=== PATIENT | female | born 1980 | race Caucasian/White ===

== ENCOUNTER 2020-08-17 18:56 | Inpatient (IN) ==
[2020-08-17 20:03] LABS: Basophils # 0.1 10*3/uL (0.0-0.2); Basophils % 0.5 % (0.0-0.8); Eosinophils # 0.1 10*3/uL (0.0-0.87); Eosinophils % 0.7 % (0.00-10.9); Hematocrit 45.9 VOL% (35.7-47.0); Hemoglobin 15.3 GM/DL (12.0-16.0); Immature Granulocytes % 0.5 %; Immature Granulocytes Absolute 0.05 #; Lymphocytes # 2.3 10*3/uL (1.4-4.0); Lymphocytes % 21.4 % (21.3-54.2); Mean Corpuscular HGB Conc 33.3 GM/DL (32-36); Mean Corpuscular Volume 96.6 FL (87-102); Mean Platelet Volume 8.6 FL (9.6-12.0); Monocytes % 7.4 % (1.7-12.7); Neutrophils % 69.5 % (38.7-73.9); Platelet Count 326 T/CUMM (130-400); Red Blood Count 4.75 MC/CUMM (3.8-5.5); Red Cell Distribution Width 13.9 % (9.3-17.3); White Blood Count 10.5 T/CUMM (4-12)
[2020-08-17] MEDS ORDERED: ONDANSETRON 4 MG/2 ML VIAL IV STA (20:10)
[2020-08-17] MEDS ORDERED: SODIUM CHLORIDE 0.9% 500 ML IV STA (20:10)
[2020-08-17] MEDS ORDERED: methylPREDNISolone SOD SUC 125 MG/2 ML VIAL IV STA (20:10)
[2020-08-17 20:19] LABS: Alanine Aminotransferase 120 U/L (13-56); Albumin 3.1 G/DL (3.4-5.0); Alkaline Phosphatase 124 U/L (45-117); Aspartate Amino Transferase 89 U/L (0-37); Bilirubin,Total < 0.39 MG/DL (0.2-1.0); Blood Urea Nitrogen 17 MG/DL (7-18); Calcium 8.5 MG/DL (8.5-10.1); Carbon Dioxide 28 MMOL/L (21-32); Estimated Glom Filtration Rate 65 ML/MIN; Glucose 120 MG/DL (74-106); Osmolality,Calculated 279.5 MOS/KG (273-304); Potassium 4.3 MMOL/L (3.5-5.1); Sodium 139 MMOL/L (136-145); Total Protein 6.5 G/DL (6.4-8.2)
[2020-08-17] MEDS ORDERED: PIPERACILLIN/TAZOBACTAM 3,375 MG in SODIUM CHLORIDE 0.9% 100 ML IV STA (20:22)
[2020-08-17] MEDS ORDERED: busPIRone 10 MG TABLET ONE ×2 (20:33→20:50)
[2020-08-17] MEDS: busPIRone 10 MG TABLET PO SCH (20:48)
[2020-08-17] MEDS ORDERED: FUROSEMIDE 40 MG/4 ML VIAL IV STA (20:48)
[2020-08-17] MEDS ORDERED: ENOXAPARIN 100 MG/ML SYRINGE SUBCUT STA (20:50)
[2020-08-17 21:41] LABS: Bilirubin,Urine Negative (Negative); Blood, Urine Large mg/dL (Negative); Glucose,Urine (UA) Negative (Negative); Ketones,Urine Negative (Negative); Mucus,Urine Occasional /LPF (Occasional); Nitrite,Urine Negative (Negative); Protein,Urine 30 MG/DL; RBC,Urine 181 /HPF (0-4); Squamous Epithelial Cell,Urine Many /HPF (0-10); Transitional Epi Cells,Urine Occasional /HPF (<1); Urine Appearance Slightly Hazy (Clear); Urine Color Yellow (Yellow); Urine Specific Gravity 1.009 (1.001-1.035); Urine Urobilinogen < 2.0 EU/DL (0.2-1.0); WBC,Urine 7 /HPF (0-6)
[2020-08-17 22:05] LABS: Barbiturates Screen,Urine Negative (Negative); Benzodiazepines Screen,Urine Negative (Negative); Cannabinoid Screen,Urine Negative (Negative); Opiate Screen,Urine Negative (Negative); Phencyclidine Screen,Urine Negative (Negative)
[2020-08-17 22:51] LABS: INR 1.1; PT Patient Result 12.4 SECS (9.8-11.9)
[2020-08-17] MEDS ORDERED: CLORAZEPATE 7.5 MG TABLET PO ONE (23:58)
[2020-08-18] MEDS ORDERED: ZALEPLON 5 MG CAPSULE PO ONE
[2020-08-18] MEDS ORDERED: CLORAZEPATE 7.5 MG TABLET PO ONE (00:30)
[2020-08-18] MEDS ORDERED: LEVALBUTEROL 1.25 MG/3 ML NEB RESP TX PRN (00:34)
[2020-08-18] MEDS ORDERED: GLUCAGON 1 MG VIAL IM PRN (00:41)
[2020-08-18] MEDS ORDERED: DEXTROSE 50% 25 GM/50 ML VIAL IV PRN (00:41)
[2020-08-18] MEDS ORDERED: ONDANSETRON 4 MG/2 ML VIAL IV PRN (00:41)
[2020-08-18] MEDS ORDERED: hydrALAZINE 20 MG/1 ML VIAL IV PRN (00:41)
[2020-08-18] MEDS ORDERED: cefTRIAXone 1,000 MG in SODIUM CHLORIDE 0.9% 100 ML IV SCH (01:00)
[2020-08-18] MEDS ORDERED: AZITHROMYCIN INJ 500 MG in SODIUM CHLORIDE 0.9% 250 ML IV SCH (01:00)
[2020-08-18] MEDS ORDERED: ENOXAPARIN 60 MG/0.6 ML SYRINGE SUBCUT SCH (01:00)
[2020-08-18 03:18] LABS: Basophils % 0.3 % (0.0-0.8); Hematocrit 47.5 VOL% (35.7-47.0); Hemoglobin 15.1 GM/DL (12.0-16.0); Immature Granulocytes % 0.4 %; Immature Granulocytes Absolute 0.03 #; Lymphocytes # 0.5 10*3/uL (1.4-4.0); Lymphocytes % 7.2 % (21.3-54.2); Mean Corpuscular HGB Conc 31.8 GM/DL (32-36); Mean Corpuscular Volume 99.2 FL (87-102); Mean Platelet Volume 8.6 FL (9.6-12.0); Monocytes % 1.5 % (1.7-12.7); Neutrophils % 90.6 % (38.7-73.9); Platelet Count 331 T/CUMM (130-400); Red Blood Count 4.79 MC/CUMM (3.8-5.5); Red Cell Distribution Width 13.8 % (9.3-17.3); White Blood Count 6.8 T/CUMM (4-12)
[2020-08-18 03:44] LABS: Alanine Aminotransferase 114 U/L (13-56); Albumin 3.1 G/DL (3.4-5.0); Alkaline Phosphatase 124 U/L (45-117); Aspartate Amino Transferase 74 U/L (0-37); Bilirubin,Total < 0.39 MG/DL (0.2-1.0); Blood Urea Nitrogen 17 MG/DL (7-18); Calcium 8.3 MG/DL (8.5-10.1); Carbon Dioxide 23 MMOL/L (21-32); Estimated Glom Filtration Rate 60 ML/MIN; Glucose 176 MG/DL (74-106); HDL Cholesterol 46 MG/DL (40-60); Potassium 3.9 MMOL/L (3.5-5.1); Sodium 136 MMOL/L (136-145); Total Protein 6.7 G/DL (6.4-8.2); Triglycerides 90 MG/DL (2-150)
[2020-08-18 04:03] LABS: Lymphocytes 5 % (20-55); Platelet Estimate Normal; Segmented Neutrophils 93 % (50-85); Total Cells Counted 100
[2020-08-18 04:14] LABS: Hepatitis B Core IgM Quant 0.17 Index; Hepatitis B Surface Ag Quant < 0.10 Index; Hepatitis B Surface Ag Result Non-Reactive (NonReactive); Hepatitis C Virus Ab Quant 0.11 Index; Hepatitis C Virus Ab Result Non-Reactive (NonReactive)
[2020-08-18] MEDS ORDERED: FUROSEMIDE 40 MG/4 ML VIAL IV SCH (08:00)
[2020-08-18] MEDS: ASCORBIC ACID 500 MG TABLET PO SCH (08:50)
[2020-08-18] MEDS: PANTOPRAZOLE 40 MG TABLET PO SCH (08:51)
[2020-08-18] MEDS: busPIRone 10 MG TABLET PO SCH (08:51)
[2020-08-18] MEDS: ENOXAPARIN 60 MG/0.6 ML SYRINGE SUBCUT SCH ×2 (08:52→20:50)
[2020-08-18] MEDS ORDERED: predniSONE 20 MG TABLET PO SCH (09:00)
[2020-08-18] MEDS ORDERED: FUROSEMIDE 20 MG/2 ML VIAL IV SCH (16:00)
[2020-08-18] MEDS: clonazePAM 0.5 MG TABLET PO SCH (20:50)
[2020-08-18] MEDS ORDERED: ZALEPLON 5 MG CAPSULE PO PRN (21:00)
[2020-08-18] MEDS ORDERED: NICOTINE 14 MG/24 HR PATCH TRANSDERM PRN (23:42)
[2020-08-19 05:22] LABS: Basophils # 0.1 10*3/uL (0.0-0.2); Basophils % 0.3 % (0.0-0.8); Eosinophils # 0.1 10*3/uL (0.0-0.87); Eosinophils % 0.4 % (0.00-10.9); Hematocrit 44.2 VOL% (35.7-47.0); Hemoglobin 14.9 GM/DL (12.0-16.0); Immature Granulocytes % 0.4 %; Immature Granulocytes Absolute 0.07 #; Lymphocytes # 3.6 10*3/uL (1.4-4.0); Lymphocytes % 22.8 % (21.3-54.2); Mean Corpuscular HGB Conc 33.7 GM/DL (32-36); Mean Corpuscular Volume 95.3 FL (87-102); Mean Platelet Volume 8.8 FL (9.6-12.0); Monocytes % 8.6 % (1.7-12.7); Neutrophils % 67.5 % (38.7-73.9); Platelet Count 334 T/CUMM (130-400); Red Blood Count 4.64 MC/CUMM (3.8-5.5); Red Cell Distribution Width 13.8 % (9.3-17.3); White Blood Count 15.9 T/CUMM (4-12)
[2020-08-19 05:56] LABS: Calcium 8.5 MG/DL (8.5-10.1); Osmolality,Calculated 277.8 MOS/KG (273-304); Potassium 3.7 MMOL/L (3.5-5.1)
[2020-08-19 06:01] LABS: Albumin 2.9 G/DL (3.4-5.0); Calcium 8.6 MG/DL (8.5-10.1); Potassium 3.7 MMOL/L (3.5-5.1); Total Protein 6.1 G/DL (6.4-8.2)
[2020-08-19] MEDS ORDERED: FUROSEMIDE 40 MG TABLET PO SCH (09:00)
[2020-08-19] MEDS ORDERED: CALCIUM (CARBONATE) 500 MG TABLET PO PRN (10:50)
[2020-08-19] MEDS ORDERED: CALCIUM CARBONATE CHEW 500 MG TABLET PO PRN (12:03)
[2020-08-19] MEDS: ACETAMINOPHEN 325 MG TABLET PO PRN (12:21)
[2020-08-19] MEDS: clonazePAM 0.5 MG TABLET PO SCH ×2 (12:37→23:10)
[2020-08-19] MEDS: DOCUSATE SODIUM 100 MG CAPSULE PO PRN (12:37)
[2020-08-19] MEDS: cefTRIAXone 1,000 MG in SODIUM CHLORIDE 0.9% 100 ML IV SCH (12:37)
[2020-08-19] MEDS: ASCORBIC ACID 500 MG TABLET PO SCH (12:37)
[2020-08-19] MEDS: PANTOPRAZOLE 40 MG TABLET PO SCH (12:38)
[2020-08-19] MEDS: carvediloL 6.25 MG TABLET PO SCH ×2 (12:38→21:46)
[2020-08-19] MEDS: ENOXAPARIN 60 MG/0.6 ML SYRINGE SUBCUT SCH (12:41)
[2020-08-19] MEDS ORDERED: LORazepam 2 MG/1 ML VIAL IV PRN (13:20)
[2020-08-19] MEDS ORDERED: HydrOXYzine PAMOATE 50 MG CAPSULE PO PRN (13:32)
[2020-08-19] MEDS ORDERED: rOPINIRole 0.25 MG TABLET PO PRN (13:32)
[2020-08-19] MEDS ORDERED: METHOCARBAMOL 500 MG TABLET PO PRN (13:40)
[2020-08-19 13:41] LABS: Folate 23.57 NG/ML (5.38-24.0)
[2020-08-19] MEDS: AZITHROMYCIN INJ 500 MG in SODIUM CHLORIDE 0.9% 250 ML IV SCH (17:00)
[2020-08-19] MEDS ORDERED: NALOXONE 0.4 MG/ML VIAL ONE (19:23)
[2020-08-19] MEDS ORDERED: flumazeniL 0.5 MG/5 ML VIAL IV ONE (19:25)
[2020-08-19] MEDS ORDERED: NALOXONE 0.4 MG/ML VIAL IV ONE (19:25)
[2020-08-19] MEDS ORDERED: FUROSEMIDE 40 MG/4 ML VIAL ONE (19:49)
[2020-08-19] MEDS ORDERED: MORPHINE 4 MG/1 ML VIAL ONE (19:49)
[2020-08-19] MEDS ORDERED: MORPHINE 4 MG/1 ML VIAL IV ONE (19:55)
[2020-08-19] MEDS ORDERED: FUROSEMIDE 40 MG/4 ML VIAL IV ONE (19:55)
[2020-08-19 21:03] LABS: Potassium 3.2 MMOL/L (3.5-5.1)
[2020-08-19 21:49] LABS: Barbiturates Screen,Urine Negative (Negative); Benzodiazepines Screen,Urine Negative (Negative); Cannabinoid Screen,Urine Negative (Negative); Opiate Screen,Urine Positive (Negative); Phencyclidine Screen,Urine Negative (Negative)
[2020-08-19] MEDS: ENOXAPARIN 40 MG/0.4 ML SYRINGE SUBCUT SCH (23:10)
[2020-08-20] MEDS ORDERED: POTASSIUM CHLORIDE 20 MEQ TABLET PO ONE (00:28)
[2020-08-20] MEDS ORDERED: POTASSIUM CHLORIDE 20 MEQ TABLET PO PRN (00:29)
[2020-08-20] MEDS ORDERED: MAGNESIUM SULF RIDER 4 GM/100 ML PREMIX IV PRN (00:31)
[2020-08-20] MEDS ORDERED: MAGNESIUM SULF RIDER 2 GM/50 ML PREMIX IV PRN (00:31)
[2020-08-20 01:55] LABS: Basophils # 0.1 10*3/uL (0.0-0.2); Basophils % 0.6 % (0.0-0.8); Eosinophils # 0.2 10*3/uL (0.0-0.87); Eosinophils % 1.5 % (0.00-10.9); Hemoglobin 14.8 GM/DL (12.0-16.0); Immature Granulocytes % 0.4 %; Immature Granulocytes Absolute 0.04 #; Lymphocytes # 3.5 10*3/uL (1.4-4.0); Lymphocytes % 33.6 % (21.3-54.2); Mean Corpuscular HGB Conc 32.2 GM/DL (32-36); Mean Corpuscular Volume 97.5 FL (87-102); Mean Platelet Volume 8.6 FL (9.6-12.0); Monocytes % 9.8 % (1.7-12.7); Neutrophils % 54.1 % (38.7-73.9); Platelet Count 340 T/CUMM (130-400); Red Blood Count 4.72 MC/CUMM (3.8-5.5); Red Cell Distribution Width 13.4 % (9.3-17.3); White Blood Count 10.4 T/CUMM (4-12)
[2020-08-20 02:02] LABS: Alanine Aminotransferase 129 U/L (13-56); Alkaline Phosphatase 106 U/L (45-117); Aspartate Amino Transferase 89 U/L (0-37); Bilirubin,Total < 0.39 MG/DL (0.2-1.0); Blood Urea Nitrogen 23 MG/DL (7-18); Calcium 8.1 MG/DL (8.5-10.1); Carbon Dioxide 31 MMOL/L (21-32); Estimated Glom Filtration Rate 75 ML/MIN; Glucose 105 MG/DL (74-106); Osmolality,Calculated 273.1 MOS/KG (273-304); Potassium 3.8 MMOL/L (3.5-5.1); Sodium 135 MMOL/L (136-145); Total Protein 6.3 G/DL (6.4-8.2)
[2020-08-20 05:17] LABS: Atypical Lymphocytes Few; Platelet Estimate Adequate
[2020-08-20 07:42] LABS: ABG Base Excess 5.3 MMOL/L (-2.5-2.5); ABG HCO3 29.1 MMOL/L (20-26); ABG Oxygen Saturation 92.8 % (95-100); ABG PCO2 40.9 MM HG (35-48); ABG PH 7.467 (7.35-7.45); ABG PO2 69.2 MM HG (80-95); ABG TCO2 24.9 MMOL/L (23-27); Allen Test Positive
[2020-08-20] MEDS: lisinopriL 2.5 MG TABLET PO SCH (08:23)
[2020-08-20] MEDS: MULTIVITAMIN (CENTRUM) TABLET PO SCH (08:23)
[2020-08-20] MEDS: carvediloL 6.25 MG TABLET PO SCH (08:23)
[2020-08-20] MEDS: THIAMINE 100 MG TABLET PO SCH (08:23)
[2020-08-20] MEDS: PANTOPRAZOLE 40 MG TABLET PO SCH (08:23)
[2020-08-20] MEDS: ASCORBIC ACID 500 MG TABLET PO SCH (08:23)
[2020-08-20] MEDS: FOLIC ACID 1 MG TABLET PO SCH (08:24)
[2020-08-20] MEDS: clonazePAM 0.5 MG TABLET PO SCH ×2 (08:24→20:48)
[2020-08-20] MEDS: FUROSEMIDE 20 MG/2 ML VIAL IV SCH ×2 (08:25→18:36)
[2020-08-20] MEDS: DOCUSATE SODIUM 100 MG CAPSULE PO PRN (08:35)
[2020-08-20] MEDS ORDERED: HydrOXYzine PAMOATE 25 MG CAPSULE PO PRN (09:16)
[2020-08-20] MEDS: busPIRone 5 MG TABLET PO SCH ×2 (10:54→20:48)
[2020-08-20] MEDS: cefTRIAXone 1,000 MG in SODIUM CHLORIDE 0.9% 100 ML IV SCH (12:32)
[2020-08-20] MEDS ORDERED: ASPIRIN CHEW 81 MG TABLET PO ONE (17:36)
[2020-08-20] MEDS ORDERED: NITROGLYCERIN SL 0.4 MG TABLET SL ONE (17:36)
[2020-08-20] MEDS ORDERED: NALOXONE 0.4 MG/ML VIAL ONE (17:44)
[2020-08-20] MEDS ORDERED: AMMONIA INHALANT 1 EACH AMP INH ONE (17:48)
[2020-08-20] MEDS ORDERED: flumazeniL 0.5 MG/5 ML VIAL IV ONE ×2 (18:05→19:00)
[2020-08-20] MEDS ORDERED: MIDAZOLAM 10 MG/2 ML VIAL ONE (18:08)
[2020-08-20] MEDS ORDERED: MIDAZOLAM 10 MG/2 ML VIAL IV ONE (18:10)
[2020-08-20] MEDS ORDERED: MIDAZOLAM 100 MG in SODIUM CHLORIDE 0.9% 80 ML IV PRN (18:11)
[2020-08-20] MEDS ORDERED: MIDAZOLAM 2 MG/2 ML VIAL IV ONE (18:20)
[2020-08-20] MEDS ORDERED: SODIUM BICARBONATE 50 MEQ/50 ML SYRINGE IV ONE (18:30)
[2020-08-20] MEDS ORDERED: EPINEPHrine 1 MG/10 ML SYRINGE ONE (18:30)
[2020-08-20] MEDS ORDERED: CALCIUM CHLORIDE 1,000 MG/10 ML SYRINGE IV ONE (18:30)
[2020-08-20] MEDS: carvediloL 12.5 MG TABLET PO SCH (18:36)
[2020-08-20] MEDS: AZITHROMYCIN INJ 500 MG in SODIUM CHLORIDE 0.9% 250 ML IV SCH ×2 (18:36→20:47)
[2020-08-20] MEDS ORDERED: NOREPINEPHRINE 4 MG/4 ML VIAL IV ONE (18:50)
[2020-08-20] MEDS ORDERED: SODIUM CHLORIDE 0.9% 500 ML IV SCH ×2 (19:00→21:00)
[2020-08-20] MEDS ORDERED: SODIUM CHLORIDE 0.9% 500 ML IV ONE (19:02)
[2020-08-20] MEDS: NOREPINEPHRINE 8 MG in SODIUM CHLORIDE 0.9% 242 ML IV PRN ×2 (19:03→22:16)
[2020-08-20 19:04] VITALS: BP 101/50
[2020-08-20 19:10] LABS: ABG Base Excess -5.9 MMOL/L (-2.5-2.5); ABG HCO3 19.6 MMOL/L (20-26); ABG Oxygen Saturation 98.1 % (95-100); ABG PCO2 30.5 MM HG (35-48); ABG PH 7.379 (7.35-7.45); ABG TCO2 15.5 MMOL/L (23-27)
[2020-08-20 19:14] LABS: Basophils # 0.1 10*3/uL (0.0-0.2); Basophils % 0.5 % (0.0-0.8); Eosinophils # 0.1 10*3/uL (0.0-0.87); Eosinophils % 1.2 % (0.00-10.9); Hematocrit 44.4 VOL% (35.7-47.0); Hemoglobin 14.2 GM/DL (12.0-16.0); Immature Granulocytes % 1.2 %; Immature Granulocytes Absolute 0.13 #; Lymphocytes # 2.2 10*3/uL (1.4-4.0); Lymphocytes % 19.9 % (21.3-54.2); Mean Corpuscular Volume 99.6 FL (87-102); Mean Platelet Volume 8.6 FL (9.6-12.0); Monocytes % 4.6 % (1.7-12.7); Neutrophils % 72.6 % (38.7-73.9); Platelet Count 291 T/CUMM (130-400); Red Blood Count 4.46 MC/CUMM (3.8-5.5); Red Cell Distribution Width 13.2 % (9.3-17.3)
[2020-08-20 19:26] LABS: INR 1.2
[2020-08-20 19:38] LABS: Alanine Aminotransferase 154 U/L (13-56); Albumin 2.5 G/DL (3.4-5.0); Alkaline Phosphatase 108 U/L (45-117); Aspartate Amino Transferase 156 U/L (0-37); Bilirubin,Total < 0.39 MG/DL (0.2-1.0); Blood Urea Nitrogen 27 MG/DL (7-18); Calcium 7.6 MG/DL (8.5-10.1); Carbon Dioxide 18 MMOL/L (21-32); Estimated Glom Filtration Rate 46 ML/MIN; Glucose 188 MG/DL (74-106); Osmolality,Calculated 282.8 MOS/KG (273-304); Sodium 137 MMOL/L (136-145); Total Protein 5.4 G/DL (6.4-8.2); Troponin I 0.021 NG/ML (0.00-0.045)
[2020-08-20 20:39] LABS: Barbiturates Screen,Urine Negative (Negative); Benzodiazepines Screen,Urine Positive (Negative); Cannabinoid Screen,Urine Negative (Negative); Opiate Screen,Urine Negative (Negative); Phencyclidine Screen,Urine Negative (Negative)
[2020-08-20] MEDS: ENOXAPARIN 40 MG/0.4 ML SYRINGE SUBCUT SCH (20:48)
[2020-08-20] MEDS ORDERED: PHENYLEPHRINE DRIP 40 MG/250 ML PREMIX IV ONE (21:20)
[2020-08-20] MEDS: PHENYLEPHRINE DRIP 40 MG/250 ML PREMIX IV PRN (21:43)
[2020-08-20 21:45] LABS: Basophils # 0.1 10*3/uL (0.0-0.2); Basophils % 0.5 % (0.0-0.8); Eosinophils # 0.1 10*3/uL (0.0-0.87); Eosinophils % 0.6 % (0.00-10.9); Hematocrit 45.9 VOL% (35.7-47.0); Hemoglobin 14.6 GM/DL (12.0-16.0); Immature Granulocytes % 1.6 %; Immature Granulocytes Absolute 0.26 #; Lymphocytes # 3.4 10*3/uL (1.4-4.0); Lymphocytes % 21.1 % (21.3-54.2); Mean Corpuscular HGB Conc 31.8 GM/DL (32-36); Mean Corpuscular Volume 99.8 FL (87-102); Mean Platelet Volume 8.6 FL (9.6-12.0); Monocytes % 6.2 % (1.7-12.7); NRBC # 0.03 10*3/uL; Platelet Count 263 T/CUMM (130-400); Red Cell Distribution Width 13.2 % (9.3-17.3); White Blood Count 16.2 T/CUMM (4-12)
[2020-08-20 21:59] LABS: INR 1.3; Partial Thromboplastin Time 23.9 SECS (23.9-33.8)
[2020-08-20 22:14] LABS: ABG PCO2 38.7 MM HG (35-48); ABG PH 7.345 (7.35-7.45)
[2020-08-20 22:15] LABS: ABG Base Excess -4.2 MMOL/L (-2.5-2.5); ABG TCO2 18.2 MMOL/L (23-27)
[2020-08-20 22:16] LABS: ABG Oxygen Saturation 99.6 % (95-100)
[2020-08-20 22:17] LABS: Albumin 2.4 G/DL (3.4-5.0); Bilirubin,Total 0.7 MG/DL (0.2-1.0); Calcium 10.3 MG/DL (8.5-10.1); Potassium 5.5 MMOL/L (3.5-5.1); Total Protein 4.7 G/DL (6.4-8.2)
[2020-08-20] MEDS ORDERED: ENOXAPARIN 80 MG/0.8 ML SYRINGE SUBCUT ONE (22:30)
[2020-08-20] MEDS: DEXMEDETOMIDINE 200 MCG in SODIUM CHLORIDE 0.9% 48 ML IV PRN (22:40)
[2020-08-20] MEDS ORDERED: LORazepam 2 MG/1 ML VIAL ONE ×2 (22:46→23:12)
[2020-08-20] MEDS ORDERED: LORazepam 2 MG/1 ML VIAL IV ONE (22:50)
[2020-08-20] MEDS: DOBUTamine 500 MG/250 ML PREMIX IV PRN (23:45)
[2020-08-20] MEDS ORDERED: DOBUTamine 500 MG/250 ML PREMIX IV ONE (23:52)
[2020-08-21] MEDS: NOREPINEPHRINE 8 MG in SODIUM CHLORIDE 0.9% 242 ML IV PRN (01:44)
[2020-08-21] MEDS: DEXMEDETOMIDINE 200 MCG in SODIUM CHLORIDE 0.9% 48 ML IV PRN ×2 (02:24→07:16)
[2020-08-21 04:59] LABS: ABG Base Excess 0.2 MMOL/L (-2.5-2.5); ABG HCO3 24.6 MMOL/L (20-26); ABG Oxygen Saturation 99.8 % (95-100); ABG PCO2 34.4 MM HG (35-48); ABG PH 7.444 (7.35-7.45); ABG TCO2 19.8 MMOL/L (23-27)
[2020-08-21 05:00] LABS: Basophils % 0.1 % (0.0-0.8); Hematocrit 45.4 VOL% (35.7-47.0); Hemoglobin 14.8 GM/DL (12.0-16.0); Immature Granulocytes % 0.5 %; Immature Granulocytes Absolute 0.07 #; Lymphocytes # 1.3 10*3/uL (1.4-4.0); Lymphocytes % 9.6 % (21.3-54.2); Mean Corpuscular HGB Conc 32.6 GM/DL (32-36); Mean Corpuscular Volume 96.2 FL (87-102); Mean Platelet Volume 8.7 FL (9.6-12.0); Neutrophils % 82.8 % (38.7-73.9); Platelet Count 296 T/CUMM (130-400); Red Blood Count 4.72 MC/CUMM (3.8-5.5); Red Cell Distribution Width 13.2 % (9.3-17.3); White Blood Count 13.4 T/CUMM (4-12)
[2020-08-21 05:18] LABS: Albumin 2.9 G/DL (3.4-5.0); Bilirubin,Total 0.8 MG/DL (0.2-1.0); Osmolality,Calculated 282.7 MOS/KG (273-304); Potassium 4.7 MMOL/L (3.5-5.1); Total Protein 5.6 G/DL (6.4-8.2)
[2020-08-21] MEDS: PHENYLEPHRINE DRIP 40 MG/250 ML PREMIX IV PRN ×3 (06:01→17:02)
[2020-08-21] MEDS: carvediloL 12.5 MG TABLET PO SCH (09:53)
[2020-08-21] MEDS: FUROSEMIDE 20 MG/2 ML VIAL IV SCH ×2 (09:53→15:54)
[2020-08-21] MEDS: clonazePAM 0.5 MG TABLET PO SCH (09:54)
[2020-08-21] MEDS: lisinopriL 2.5 MG TABLET PO SCH (09:54)
[2020-08-21] MEDS: FOLIC ACID 1 MG TABLET PO SCH (09:54)
[2020-08-21] MEDS: HYDROCORTISONE 100 MG VIAL IV SCH ×2 (09:54→19:01)
[2020-08-21] MEDS: MULTIVITAMIN (CENTRUM) TABLET PO SCH (09:54)
[2020-08-21] MEDS: busPIRone 5 MG TABLET PO SCH ×2 (09:54→20:43)
[2020-08-21] MEDS: PANTOPRAZOLE 40 MG TABLET PO SCH (09:54)
[2020-08-21] MEDS: ASCORBIC ACID 500 MG TABLET PO SCH (09:55)
[2020-08-21] MEDS: THIAMINE 100 MG TABLET PO SCH (09:55)
[2020-08-21] MEDS: cefTRIAXone 1,000 MG in SODIUM CHLORIDE 0.9% 100 ML IV SCH (11:03)
[2020-08-21 11:32] LABS: ABG HCO3 24.8 MMOL/L (20-26); ABG Oxygen Saturation 79.7 % (95-100); ABG PCO2 33.2 MM HG (35-48); ABG PH 7.464 (7.35-7.45); ABG PO2 47.6 MM HG (80-95); ABG TCO2 20.1 MMOL/L (23-27)
[2020-08-21] MEDS: DEXMEDETOMIDINE 400 MCG in SODIUM CHLORIDE 0.9% 96 ML IV PRN ×2 (11:32→22:31)
[2020-08-21] MEDS ORDERED: FUROSEMIDE 40 MG/4 ML VIAL IV ONE (11:43)
[2020-08-21] MEDS: ALBUTEROL/IPRATROPIUM 3 ML NEB RESP TX SCH ×2 (13:05→19:18)
[2020-08-21] MEDS: AZITHROMYCIN INJ 500 MG in SODIUM CHLORIDE 0.9% 250 ML IV SCH (14:05)
[2020-08-21] MEDS ORDERED: CISATRACURIUM 10 MG/5 ML VIAL IV ONE (15:17)
[2020-08-21 15:40] LABS: ABG Base Excess 0.3 MMOL/L (-2.5-2.5); ABG HCO3 23.9 MMOL/L (20-26); ABG Oxygen Saturation 69.1 % (95-100); ABG PCO2 30.8 MM HG (35-48); ABG PH 7.474 (7.35-7.45); ABG TCO2 18.9 MMOL/L (23-27)
[2020-08-21 15:45] LABS: ABG PO2 39.7 MM HG (80-95)
[2020-08-21] MEDS: ACETAMINOPHEN 325 MG TABLET PO PRN (16:23)
[2020-08-21] MEDS: SODIUM CHLORIDE IV PRN (19:02)
[2020-08-21] MEDS: PHENYLEPHRINE IV PRN (19:02)
[2020-08-21] MEDS: ENOXAPARIN 40 MG/0.4 ML SYRINGE SUBCUT SCH (20:25)
[2020-08-21] MEDS: DOBUTamine 500 MG/250 ML PREMIX IV PRN (22:01)
[2020-08-22] MEDS: ALBUTEROL/IPRATROPIUM 3 ML NEB RESP TX SCH ×4 (00:01→19:41)
[2020-08-22] MEDS: HYDROCORTISONE 100 MG VIAL IV SCH ×3 (00:10→18:32)
[2020-08-22] MEDS: PHENYLEPHRINE IV PRN (04:14)
[2020-08-22] MEDS: SODIUM CHLORIDE IV PRN (04:14)
[2020-08-22 04:24] LABS: ABG HCO3 26.2 MMOL/L (20-26); ABG Oxygen Saturation 99.7 % (95-100); ABG PCO2 24.4 MM HG (35-48); ABG PH 7.567 (7.35-7.45); ABG TCO2 18.4 MMOL/L (23-27)
[2020-08-22 04:27] LABS: Basophils % 0.2 % (0.0-0.8); Hemoglobin 15.3 GM/DL (12.0-16.0); Immature Granulocytes % 0.4 %; Immature Granulocytes Absolute 0.05 #; Lymphocytes # 1.1 10*3/uL (1.4-4.0); Lymphocytes % 9.1 % (21.3-54.2); Mean Corpuscular HGB Conc 33.3 GM/DL (32-36); Mean Corpuscular Volume 94.7 FL (87-102); Mean Platelet Volume 8.6 FL (9.6-12.0); Neutrophils % 83.3 % (38.7-73.9); Platelet Count 290 T/CUMM (130-400); Red Blood Count 4.86 MC/CUMM (3.8-5.5); Red Cell Distribution Width 13.3 % (9.3-17.3)
[2020-08-22 04:54] LABS: Albumin 2.4 G/DL (3.4-5.0); Bilirubin,Total 0.6 MG/DL (0.2-1.0); Calcium 7.8 MG/DL (8.5-10.1); Osmolality,Calculated 296.8 MOS/KG (273-304); Potassium 3.6 MMOL/L (3.5-5.1); Total Protein 5.3 G/DL (6.4-8.2)
[2020-08-22] MEDS: DOBUTamine 500 MG/250 ML PREMIX IV PRN ×2 (05:33→17:01)
[2020-08-22 08:40] LABS: Troponin I 0.253 NG/ML (0.00-0.045)
[2020-08-22] MEDS ORDERED: PANTOPRAZOLE 40 MG VIAL IV SCH (09:00)
[2020-08-22] MEDS: busPIRone 5 MG TABLET PO SCH ×2 (09:29→20:55)
[2020-08-22] MEDS: ASCORBIC ACID 500 MG TABLET PO SCH (09:30)
[2020-08-22] MEDS: MULTIVITAMIN (CENTRUM) TABLET PO SCH (09:31)
[2020-08-22] MEDS: FOLIC ACID 1 MG TABLET PO SCH (09:31)
[2020-08-22] MEDS: THIAMINE 100 MG TABLET PO SCH (09:31)
[2020-08-22] MEDS ORDERED: DEXTROSE 50% 25 GM/50 ML VIAL IV PRN (10:38)
[2020-08-22] MEDS: DEXMEDETOMIDINE 400 MCG in SODIUM CHLORIDE 0.9% 96 ML IV PRN ×2 (10:50→20:19)
[2020-08-22] MEDS: cefTRIAXone 1,000 MG in SODIUM CHLORIDE 0.9% 100 ML IV SCH (11:20)
[2020-08-22] MEDS: AZITHROMYCIN INJ 500 MG in SODIUM CHLORIDE 0.9% 250 ML IV SCH (13:15)
[2020-08-22] MEDS: ENOXAPARIN 40 MG/0.4 ML SYRINGE SUBCUT SCH (20:55)
== END 2020-08-22 21:15 | disposition hospice, home (50) | DRG 291 ==
LOC: N.EDINP 18:56 → N.ICU 18:56 → N.ED 18:56 → SUATTDRO 20:58 → N.4E 22:15 → N.ICU 08-19 19:40 → SUATTDRO 08-20 08:47 → N.TELEN 08-20 12:13 → N.ICU 08-20 18:01
PROVIDERS: ADMIT Internal Medicine; ATTEND Internal Medicine

== ENCOUNTER 2020-08-26 15:02 | Inpatient (IN) ==
[2020-08-26] MEDS ORDERED: ALBUTEROL 2.5 MG/3 ML NEB RESP TX PRN (18:19)
[2020-08-26] MEDS ORDERED: ENOXAPARIN 30 MG/0.3 ML SYRINGE SUBCUT SCH (21:00)
[2020-08-26] MEDS ORDERED: PANTOPRAZOLE 40 MG VIAL IV SCH (21:00)
[2020-08-26] MEDS ORDERED: DOBUTamine 500 MG/250 ML PREMIX IV PRN (22:31)
[2020-08-26] MEDS ORDERED: ACETAMINOPHEN 325 MG TABLET PO PRN (23:37)
[2020-08-26] MEDS: MORPHINE 4 MG/1 ML VIAL IV PRN (23:53)
[2020-08-26] MEDS: ONDANSETRON 4 MG/2 ML VIAL IV PRN (23:54)
[2020-08-26] MEDS: OLANZapine 5 MG TABLET PO SCH (23:55)
[2020-08-27 02:52] LABS: Bilirubin,Urine Negative (Negative); Blood, Urine Small mg/dL (Negative); Glucose,Urine (UA) Negative (Negative); Ketones,Urine Negative (Negative); Nitrite,Urine Negative (Negative); Protein,Urine Negative; RBC,Urine 1 /HPF (0-4); Squamous Epithelial Cell,Urine Occasional /HPF (0-10); Urine Appearance CLEAR (Clear); Urine Color Straw (Yellow); Urine Specific Gravity 1.004 (1.001-1.035); Urine Urobilinogen < 2.0 EU/DL (0.2-1.0)
[2020-08-27] MEDS ORDERED: lisinopriL 10 MG TABLET PO SCH ×2 (03:00→09:00)
[2020-08-27] MEDS: carvediloL 3.125 MG TABLET PO SCH ×3 (03:17→20:25)
[2020-08-27] MEDS: MORPHINE 4 MG/1 ML VIAL IV PRN ×3 (04:50→13:20)
[2020-08-27 05:10] LABS: Basophils # 0.1 10*3/uL (0.0-0.2); Basophils % 0.4 % (0.0-0.8); Eosinophils # 0.2 10*3/uL (0.0-0.87); Eosinophils % 1.2 % (0.00-10.9); Hematocrit 48.4 VOL% (35.7-47.0); Hemoglobin 15.4 GM/DL (12.0-16.0); Immature Granulocytes % 0.6 %; Immature Granulocytes Absolute 0.08 #; Lymphocytes # 1.9 10*3/uL (1.4-4.0); Lymphocytes % 13.4 % (21.3-54.2); Mean Corpuscular HGB Conc 31.8 GM/DL (32-36); Mean Corpuscular Volume 98.6 FL (87-102); Mean Platelet Volume 10.2 FL (9.6-12.0); Monocytes % 7.8 % (1.7-12.7); Neutrophils % 76.6 % (38.7-73.9); Platelet Count 136 T/CUMM (130-400); Red Blood Count 4.91 MC/CUMM (3.8-5.5); Red Cell Distribution Width 13.8 % (9.3-17.3); White Blood Count 13.8 T/CUMM (4-12)
[2020-08-27 05:28] LABS: Albumin 2.7 G/DL (3.4-5.0); Bilirubin,Total 0.8 MG/DL (0.2-1.0); Calcium 8.6 MG/DL (8.5-10.1); Osmolality,Calculated 278.3 MOS/KG (273-304); Potassium 3.7 MMOL/L (3.5-5.1); Total Protein 6.4 G/DL (6.4-8.2)
[2020-08-27] MEDS: SPIRONOLACTONE 25 MG TABLET PO SCH (08:55)
[2020-08-27] MEDS: OLANZapine 5 MG TABLET PO SCH ×2 (08:55→20:24)
[2020-08-27] MEDS: MULTIVITAMIN (CENTRUM) TABLET PO SCH (08:55)
[2020-08-27] MEDS: THIAMINE 100 MG TABLET PO SCH (08:55)
[2020-08-27] MEDS: FOLIC ACID 1 MG TABLET PO SCH (08:55)
[2020-08-27] MEDS: PANTOPRAZOLE 40 MG TABLET PO SCH (08:55)
[2020-08-27] MEDS: lisinopriL 10 MG TABLET PO SCH (08:55)
[2020-08-27] MEDS ORDERED: THIAMINE 200 MG/2 ML VIAL IV SCH (09:00)
[2020-08-27] MEDS ORDERED: levETIRAcetam 500 MG TABLET PO SCH (09:00)
[2020-08-27] MEDS: busPIRone 5 MG TABLET PO SCH (20:23)
[2020-08-27] MEDS: ENOXAPARIN 40 MG/0.4 ML SYRINGE SUBCUT SCH (20:24)
[2020-08-27] MEDS: POLYETHYLENE GLYCOL POWDER 17 GM PACK PO PRN (20:24)
[2020-08-28] MEDS: MORPHINE 4 MG/1 ML VIAL IV PRN ×3 (03:25→21:25)
[2020-08-28 05:33] LABS: Calcium 8.4 MG/DL (8.5-10.1); Osmolality,Calculated 281.1 MOS/KG (273-304)
[2020-08-28] MEDS: carvediloL 3.125 MG TABLET PO SCH ×2 (09:43→21:24)
[2020-08-28] MEDS: OLANZapine 5 MG TABLET PO SCH ×2 (09:43→21:23)
[2020-08-28] MEDS: FOLIC ACID 1 MG TABLET PO SCH (09:44)
[2020-08-28] MEDS: ASCORBIC ACID 500 MG TABLET PO SCH (09:44)
[2020-08-28] MEDS: PANTOPRAZOLE 40 MG TABLET PO SCH (09:44)
[2020-08-28] MEDS: busPIRone 5 MG TABLET PO SCH ×2 (09:44→21:24)
[2020-08-28] MEDS: MULTIVITAMIN (CENTRUM) TABLET PO SCH (09:44)
[2020-08-28] MEDS: THIAMINE 100 MG TABLET PO SCH (09:44)
[2020-08-28] MEDS: SPIRONOLACTONE 25 MG TABLET PO SCH (09:45)
[2020-08-28] MEDS: lisinopriL 10 MG TABLET PO SCH (09:45)
[2020-08-28] MEDS: ONDANSETRON 4 MG/2 ML VIAL IV PRN (12:12)
[2020-08-28] MEDS: ENOXAPARIN 40 MG/0.4 ML SYRINGE SUBCUT SCH (21:24)
[2020-08-29] MEDS: carvediloL 3.125 MG TABLET PO SCH ×2 (09:26→21:22)
[2020-08-29] MEDS: FOLIC ACID 1 MG TABLET PO SCH (09:26)
[2020-08-29] MEDS: busPIRone 5 MG TABLET PO SCH ×2 (09:26→21:22)
[2020-08-29] MEDS: PANTOPRAZOLE 40 MG TABLET PO SCH (09:26)
[2020-08-29] MEDS: lisinopriL 10 MG TABLET PO SCH (09:26)
[2020-08-29] MEDS: SPIRONOLACTONE 25 MG TABLET PO SCH (09:27)
[2020-08-29] MEDS: ASCORBIC ACID 500 MG TABLET PO SCH (09:27)
[2020-08-29] MEDS: OLANZapine 5 MG TABLET PO SCH ×2 (09:27→21:22)
[2020-08-29] MEDS: THIAMINE 100 MG TABLET PO SCH (09:27)
[2020-08-29] MEDS: MULTIVITAMIN (CENTRUM) TABLET PO SCH (09:28)
[2020-08-29] MEDS: POLYETHYLENE GLYCOL POWDER 17 GM PACK PO PRN (09:43)
[2020-08-29] MEDS: MORPHINE 4 MG/1 ML VIAL IV PRN ×2 (09:44→21:22)
[2020-08-29] MEDS: ENOXAPARIN 40 MG/0.4 ML SYRINGE SUBCUT SCH (21:23)
[2020-08-30 05:27] LABS: Basophils # 0.1 10*3/uL (0.0-0.2); Basophils % 0.8 % (0.0-0.8); Eosinophils # 0.3 10*3/uL (0.0-0.87); Eosinophils % 2.1 % (0.00-10.9); Hematocrit 44.1 VOL% (35.7-47.0); Hemoglobin 14.2 GM/DL (12.0-16.0); Immature Granulocytes % 1.2 %; Immature Granulocytes Absolute 0.15 #; Lymphocytes # 3.6 10*3/uL (1.4-4.0); Lymphocytes % 29.3 % (21.3-54.2); Mean Corpuscular HGB Conc 32.2 GM/DL (32-36); Mean Corpuscular Volume 96.5 FL (87-102); Mean Platelet Volume 9.5 FL (9.6-12.0); Monocytes % 11.4 % (1.7-12.7); Neutrophils % 55.2 % (38.7-73.9); Platelet Count 320 T/CUMM (130-400); Red Blood Count 4.57 MC/CUMM (3.8-5.5); Red Cell Distribution Width 13.5 % (9.3-17.3); White Blood Count 12.2 T/CUMM (4-12)
[2020-08-30 06:10] LABS: Calcium 8.9 MG/DL (8.5-10.1); Osmolality,Calculated 280.4 MOS/KG (273-304); Potassium 4.1 MMOL/L (3.5-5.1)
[2020-08-30] MEDS ORDERED: MAGNESIUM SULF RIDER 2 GM/50 ML PREMIX IV PRN (07:39)
[2020-08-30] MEDS ORDERED: MAGNESIUM SULF RIDER 4 GM/100 ML PREMIX IV PRN (07:39)
[2020-08-30] MEDS: SPIRONOLACTONE 25 MG TABLET PO SCH (09:42)
[2020-08-30] MEDS: FOLIC ACID 1 MG TABLET PO SCH (09:43)
[2020-08-30] MEDS: busPIRone 5 MG TABLET PO SCH ×2 (09:43→21:15)
[2020-08-30] MEDS: ASCORBIC ACID 500 MG TABLET PO SCH (09:43)
[2020-08-30] MEDS: lisinopriL 5 MG TABLET PO SCH ×2 (09:44→10:09)
[2020-08-30] MEDS: MULTIVITAMIN (CENTRUM) TABLET PO SCH (09:44)
[2020-08-30] MEDS: THIAMINE 100 MG TABLET PO SCH (09:44)
[2020-08-30] MEDS: OLANZapine 5 MG TABLET PO SCH ×2 (09:44→21:15)
[2020-08-30] MEDS: carvediloL 6.25 MG TABLET PO SCH ×2 (09:44→21:15)
[2020-08-30] MEDS: PANTOPRAZOLE 40 MG TABLET PO SCH (09:44)
[2020-08-30] MEDS: MORPHINE 4 MG/1 ML VIAL IV PRN ×2 (09:58→21:16)
[2020-08-30] MEDS ORDERED: NICOTINE 21 MG/24 HR PATCH TRANSDERM PRN (13:19)
[2020-08-30] MEDS ORDERED: ZALEPLON 5 MG CAPSULE PO PRN (16:47)
[2020-08-30] MEDS: ENOXAPARIN 40 MG/0.4 ML SYRINGE SUBCUT SCH (21:15)
[2020-08-31] MEDS: POLYETHYLENE GLYCOL POWDER 17 GM PACK PO PRN (00:12)
[2020-08-31 04:49] LABS: Basophils # 0.1 10*3/uL (0.0-0.2); Basophils % 0.9 % (0.0-0.8); Eosinophils # 0.2 10*3/uL (0.0-0.87); Hematocrit 42.1 VOL% (35.7-47.0); Hemoglobin 13.4 GM/DL (12.0-16.0); Immature Granulocytes Absolute 0.12 #; Lymphocytes # 3.2 10*3/uL (1.4-4.0); Lymphocytes % 26.9 % (21.3-54.2); Mean Corpuscular HGB Conc 31.8 GM/DL (32-36); Mean Corpuscular Volume 95.9 FL (87-102); Mean Platelet Volume 9.3 FL (9.6-12.0); Monocytes % 13.3 % (1.7-12.7); Neutrophils % 55.9 % (38.7-73.9); Platelet Count 387 T/CUMM (130-400); Red Blood Count 4.39 MC/CUMM (3.8-5.5); Red Cell Distribution Width 13.3 % (9.3-17.3); White Blood Count 11.9 T/CUMM (4-12)
[2020-08-31 05:17] LABS: Calcium 8.8 MG/DL (8.5-10.1); Osmolality,Calculated 275.8 MOS/KG (273-304); Potassium 4.2 MMOL/L (3.5-5.1)
[2020-08-31] MEDS ORDERED: clonazePAM 0.5 MG TABLET PO PRN (08:05)
[2020-08-31] MEDS ORDERED: DIGOXIN 0.25 MG TABLET PO ONE (10:27)
[2020-08-31] MEDS: MULTIVITAMIN (CENTRUM) TABLET PO SCH (10:44)
[2020-08-31] MEDS: FOLIC ACID 1 MG TABLET PO SCH (10:45)
[2020-08-31] MEDS: busPIRone 5 MG TABLET PO SCH (10:45)
[2020-08-31] MEDS: ASCORBIC ACID 500 MG TABLET PO SCH (10:45)
[2020-08-31] MEDS: PANTOPRAZOLE 40 MG TABLET PO SCH (10:45)
[2020-08-31] MEDS: OLANZapine 5 MG TABLET PO SCH (10:46)
[2020-08-31] MEDS: lisinopriL 5 MG TABLET PO SCH (10:46)
[2020-08-31] MEDS: SPIRONOLACTONE 25 MG TABLET PO SCH (10:47)
[2020-08-31] MEDS: THIAMINE 100 MG TABLET PO SCH (10:47)
[2020-08-31] MEDS: carvediloL 6.25 MG TABLET PO SCH (10:47)
[2020-08-31] MEDS: MORPHINE 4 MG/1 ML VIAL IV PRN (10:52)
[2020-08-31 11:48] VITALS: BP 119/80
[2020-09-01] MEDS ORDERED: METOPROLOL SUCCINATE XL 25 MG TABLET PO SCH (09:00)
== END 2020-08-31 13:52 | disposition home health service (06) | DRG 293 ==
LOC: N.ICU 22:26 → SUATTDRO 22:26 → N.TELEN 08-27 11:41
PROVIDERS: ADMIT Internal Medicine; ATTEND Internal Medicine

== ENCOUNTER 2021-02-04 16:22 | Observation (INO) ==
[2021-02-04 17:56] LABS: Barbiturates Screen,Urine Negative (Negative); Benzodiazepines Screen,Urine Negative (Negative); Cannabinoid Screen,Urine Negative (Negative); Opiate Screen,Urine Negative (Negative); Phencyclidine Screen,Urine Negative (Negative)
[2021-02-04 17:57] LABS: Bilirubin,Total 0.4 MG/DL (0.20-1.00); Calcium 9.4 MG/DL (8.5-10.1); Osmolality,Calculated 277.5 MOS/KG (273-304); Total Protein 7.8 G/DL (6.4-8.2)
[2021-02-04 18:26] LABS: Basophils # 0.1 10*3/uL (0.0-0.2); Basophils % 0.8 % (0.0-0.8); Eosinophils # 0.2 10*3/uL (0.0-0.87); Eosinophils % 1.7 % (0.00-10.9); Hemoglobin 16.3 GM/DL (12.0-16.0); Immature Granulocytes % 0.2 %; Immature Granulocytes Absolute 0.02 #; Lymphocytes # 3.9 10*3/uL (1.4-4.0); Lymphocytes % 38.8 % (21.3-54.2); Mean Corpuscular Volume 96.4 FL (87-102); Mean Platelet Volume 8.2 FL (9.6-12.0); Monocytes % 5.8 % (1.7-12.7); Neutrophils % 52.7 % (38.7-73.9); Platelet Count 362 T/CUMM (130-400); Red Blood Count 4.98 MC/CUMM (3.8-5.5); Red Cell Distribution Width 12.7 % (9.3-17.3)
[2021-02-04 18:50] LABS: PT Patient Result 11.2 SECS (10.5-12.0)
[2021-02-04] MEDS ORDERED: ACETAMINOPHEN 325 MG TABLET PO PRN (20:36)
[2021-02-04] MEDS ORDERED: DOCUSATE SODIUM 100 MG CAPSULE PO PRN (20:36)
[2021-02-04] MEDS ORDERED: GLUCAGON 1 MG VIAL IM PRN (20:36)
[2021-02-04] MEDS ORDERED: DEXTROSE 50% 25 GM/50 ML VIAL IV PRN (20:36)
[2021-02-04] MEDS ORDERED: ONDANSETRON 4 MG/2 ML VIAL IV PRN (20:36)
[2021-02-04] MEDS ORDERED: traZODone 50 MG TABLET PO PRN (20:36)
[2021-02-04] MEDS ORDERED: OLANZapine 5 MG TABLET PO SCH (21:00)
[2021-02-04] MEDS ORDERED: ENOXAPARIN 40 MG/0.4 ML SYRINGE SUBCUT SCH (21:00)
[2021-02-04] MEDS: THIAMINE 100 MG TABLET PO SCH (21:36)
[2021-02-04] MEDS: carvediloL 3.125 MG TABLET PO SCH (21:36)
[2021-02-04] MEDS: SACUBITRIL/VALSARTAN 49-51 MG TABLET PO SCH (21:36)
[2021-02-05 04:40] LABS: Basophils # 0.1 10*3/uL (0.0-0.2); Basophils % 0.8 % (0.0-0.8); Eosinophils # 0.2 10*3/uL (0.0-0.87); Hematocrit 43.8 VOL% (35.7-47.0); Hemoglobin 14.6 GM/DL (12.0-16.0); Immature Granulocytes % 0.5 %; Immature Granulocytes Absolute 0.05 #; Lymphocytes # 3.9 10*3/uL (1.4-4.0); Lymphocytes % 39.2 % (21.3-54.2); Mean Corpuscular HGB Conc 33.3 GM/DL (32-36); Mean Corpuscular Volume 97.3 FL (87-102); Mean Platelet Volume 8.5 FL (9.6-12.0); Monocytes % 10.4 % (1.7-12.7); Neutrophils % 47.1 % (38.7-73.9); Platelet Count 341 T/CUMM (130-400)
[2021-02-05 05:00] LABS: Calcium 8.9 MG/DL (8.5-10.1); Osmolality,Calculated 281.5 MOS/KG (273-304); Potassium 3.9 MMOL/L (3.5-5.1)
[2021-02-05] MEDS ORDERED: NICOTINE 21 MG/24 HR PATCH TRANSDERM SCH (09:00)
[2021-02-05] MEDS ORDERED: SPIRONOLACTONE 25 MG TABLET PO SCH (09:00)
[2021-02-05] MEDS ORDERED: MULTIVITAMIN (CENTRUM) TABLET PO SCH (09:00)
[2021-02-05] MEDS ORDERED: ASPIRIN 325 MG TABLET PO SCH (09:00)
[2021-02-05] MEDS: THIAMINE 100 MG TABLET PO SCH (09:54)
[2021-02-05] MEDS: carvediloL 3.125 MG TABLET PO SCH (09:54)
[2021-02-05] MEDS: SACUBITRIL/VALSARTAN 49-51 MG TABLET PO SCH (09:54)
[2021-02-05 11:56] VITALS: BP 122/71
== END 2021-02-05 12:15 | disposition home or self-care (01) ==
LOC: EDUNIT# → EDBD → N.ED 16:22 → N.EDINP 16:22 → N.TELEN 21:04
PROVIDERS: ADMIT Internal Medicine; ATTEND Internal Medicine